=== PATIENT | male | born 1990 | race Caucasian/White ===

== ENCOUNTER 2023-04-22 04:56 | Emergency (ER) | payer SELFPAY ==
[2023-04-22 05:03] VITALS: BP 112/60; PULSE 81; RESP 16; TEMP 36.5; O2SAT 100
[2023-04-22 05:33] LABS: Appearance Urine Clear (Clear); Bilirubin Urine Negative (Negative); Blood Urine Negative (Negative); Color Urine Yellow (Yellow); Glucose Urine UA Negative (Negative); Ketones Urine Negative (Negative); Leukocyte Esterase Ur Negative LEU/UL (Negative); Nitrate Urine Negative (Negative); Protein Urine Negative (Negative); Specific Grav Ur 1.011 (1.001-1.035); Urobilinogen Urine 0.2 mg/dL (<2.0)
[2023-04-22 05:40] VITALS: BP 114/77; PULSE 62; RESP 15; O2SAT 97
[2023-04-22 05:45] LABS: Basophils Absolute Auto 0.1 K/mm3 (0.0-0.1); Eosinophils Absolute Auto 0.2 K/mm3 (0-0.3); Eosinophils Percent Auto 1.8 % (0-4.4); Hemoglobin 15.8 g/dL (14.0-18.0); Immature Granulocyte Absolute 0.03 K/mm3 (0.00-0.031); Immature Granulocyte Percent A 0.4 % (0-0.5); Lymphocytes Absolute Auto 3.41 K/mm3 (0.9-3.2); Lymphocytes Percent Auto 41.4 % (18.3-44.2); Mean Corpuscular HGB Conc 33.6 g/dl (32-36); Mean Corpuscular Hemoglobin 28.7 pg (26-34); Mean Corpuscular Volume 85.5 fl (80-100); Mean Platelet Volume 8.5 fl (7.4-10.4); Monocytes Absolute Auto 0.4 K/mm3 (0.1-0.6); Monocytes Percent Auto 4.9 % (2.6-8.5); Neutrophils Absolute Auto 4.2 K/mm3 (1.3-6.7); Neutrophils Percent Auto 50.5 % (45.5-73.1); Platelet Count Result 333 k/mm3 (150-375); Red Cell Distribution Width 12.6 % (11.5-14.5); White Blood Count 8.2 K/mm3 (4.5-10.0)
[2023-04-22 05:47] LABS: Add Urine Microscopic? NO
[2023-04-22 05:57] LABS: Alanine Aminotransferase 17 U/L (6-50); Albumin Level 4.3 g/dL (3.5-5.1); Alkaline Phosphatase 62 U/L (38-126); Anion Gap 5 mmol/L (8-16); Aspartate Amino Transferase 25 U/L (17-59); Blood Urea Nitrogen 14 mg/dL (9-20); Calcium 9.1 mg/dL (8.4-10.2); Carbon Dioxide 31 mmol/L (22-30); Chloride 101 mmol/L (98-107); Estimated CRCL calculation 104 ml/min; Estimated Glomerular Filt Rate > 60; Glucose 126 mg/dL (65-110); Lipase 48 U/L (23-300); Potassium 3.5 mmol/L (3.4-5.0); Sodium 137 mmol/L (137-145)
--- NOTE | 2023-04-22 06:02 | ED.GENADULT ---
HPI - General Adult General Chief complaint: Abdominal Pain Stated complaint: RUQ abd pain Time Seen by Provider: 04/22/23 05:21 History of Present Illness HPI narrative: This is a 32-year-old male presenting ED with chief complaint of right upper quadrant abdominal pain. Patient says that at 4:30 a.m. he was woken from sleep by a burning pain in the right upper quadrant. It was intense and he came to the emergency department immediately. While he was waiting to be evaluated the pain has now subsided. Patient has never had pain like this before, there are no exacerbating or alleviating symptoms. Patient had a normal bowel movement yesterday. Denies fever chills chest pain difficulty breathing current abdominal pain or urinary symptoms. Related Data Allergies Allergy/AdvReac Type Severity Reaction Status Date / Time Penicillins Allergy Unknown Verified 04/22/23 05:31 Exam Narrative: APPEARANCE: No apparent distress. Head: atraumatic. EYES: EOMI, NOSE: Atraumatic NECK: Trachea midline RESPIRATORY: No increased rate of breathing CARDIOVASCULAR: RRR, ABDOMINAL: Abdomen is soft nontender no guarding or rebound, point of care right upper quadrant ultrasound showed a gallstone with no evidence of cholecystitis. Sonographic Madrid's negative. MUSCULOSKELETAl: No obvious deformities NEURO: Alert. Moving 4/4 extremities SKIN:: Warm, dry. Normal color PSYCHIATRIC: Normal affect Course Vital Signs Vital signs: Vital Signs Temperature 97.7 F 04/22/23 05:03 Pulse Rate 81 04/22/23 05:03 Respiratory Rate 16 04/22/23 05:03 Blood Pressure 112/60 04/22/23 05:03 Pulse Oximetry 100 04/22/23 05:03 Oxygen Delivery Room Air 04/22/23 05:03 Temperature 97.7 F 04/22/23 05:03 Pulse Rate 62 04/22/23 05:40 Respiratory Rate 15 04/22/23 05:40 Blood Pressure 114/77 04/22/23 05:40 Pulse Oximetry 97 04/22/23 05:40 Oxygen Delivery Room Air 04/22/23 05:03 Medical Decision Making MDM Narrative Medical decision making narrative: -Course: 32-year-old male presenting with right upper quadrant pain that had resolved by time he got to the emergency department. VSS and well appearing. Laboratory study showed a mild elevation in bilirubin but no other findings. Point of care of right upper quadrant ultrasound showed a gallstone without evidence of cholecystitis. Sonographic Madrid's negative. Presumed biliary colic at this time. Patient will be discharged on trial of pain medication given primary care follow-up. Given return precautions. -DDX includes but is not limited to: PUD, gastritis, gallbladder disease, pneumonia , muscle strain, kidney stone -Social determinants of health: just moved here from [place], unemployed -Independent interpretation of studies:laboratory studies normal. Urine indicate infection. No blood in the urine. -Interventions: Tylenol, Toradol -Shared decision making / Disposition: discharge -RX Motrin Tylenol Vital Signs Vital Signs: Vital Signs Temperature 97.7 F 04/22/23 05:03 Pulse Rate 81 04/22/23 05:03 Respiratory Rate 16 04/22/23 05:03 Blood Pressure 112/60 04/22/23 05:03 Pulse Oximetry 100 04/22/23 05:03 Oxygen Delivery Room Air 04/22/23 05:03 Temperature 97.7 F 04/22/23 05:03 Pulse Rate 62 04/22/23 05:40 Respiratory Rate 15 04/22/23 05:40 Blood Pressure 114/77 04/22/23 05:40 Pulse Oximetry 97 04/22/23 05:40 Oxygen Delivery Room Air 04/22/23 05:03 Lab Data 04/22/23 05:39 04/22/23 05:39 Labs: Lab Results 04/22/23 04/22/23 Range/Units 05:16 05:39 WBC 8.2 (4.5-10.0) K/mm3 RBC 5.50 (4.6-6.20) M/mm3 Hgb 15.8 (14.0-18.0) g/dL Hct 47.0 (42.0-52.0) % MCV 85.5 (80-100) fl MCH 28.7 (26-34) pg MCHC 33.6 (32-36) g/dl RDW 12.6 (11.5-14.5) % Plt Count 333 (150-375) k/mm3 MPV 8.5 (7.4-10.4) fl Immature Gran % (Auto) 0.4 (0-0.5
[2023-04-22] MEDS: KETOROLAC 15 MG/ML VIAL (*BKC) IV PUSH (06:12)
[2023-04-22] MEDS: ACETAMINOPHEN 500 MG TABLET 1000 MG PO (06:12)
[2023-04-22 07:03] VITALS: BP 104/64; PULSE 16; RESP 15; O2SAT 100
== END 2023-04-22 07:04 | disposition home or self-care (01) ==
PROVIDERS: Emergency Provider Emergency Medicine
DX: K80.20 Calculus of gallbladder without cholecystitis without obstruction (principal)
CPT/HCPCS: 36415; 80053; 81003; 83690; 85025; 96374; 99284; A9270; J1885

== ENCOUNTER 2023-10-05 01:33 | Emergency (ER) | payer SELFPAY ==
--- NOTE | ~2023-10-05 | US_ITS ---
US abdomen limited INDICATION: Choledocholithiasis PROCEDURE: Realtime right upper abdominal ultrasound. COMPARISON: No prior studies for comparison. FINDINGS: The pancreas is normal without focal mass or pancreatic ductal dilation. Liver echotexture is increased, consistent with fatty infiltration. There is normal directional flow in the portal ve in. There are echogenic foci in the gallbladder which did not move, most likely gallbladder polyps. No de finitive stones are seen. Common bile duct measures 2 mm. No sonographic Madrid's sign. IMPRESSION: 1: Fatty infiltration of the liver. 2: Nonmobile echogenic intraluminal foci in the gallbladder, most likely gallbladder polyps rather th an stones. Reviewed, dictated and finalized at location B. IMPRESSION: 1: Fatty infiltration of the liver. 2: Nonmobile echogenic intraluminal foci in the gallbladder, most likely gallbl adder polyps rather than stones.
[2023-10-05 01:37] VITALS: BP 132/76; PULSE 87; RESP 16; TEMP 36.7; O2SAT 99
[2023-10-05 04:49] LABS: Appearance Urine Clear (Clear); Bilirubin Urine Negative (Negative); Blood Urine Negative (Negative); Color Urine Yellow (Yellow); Glucose Urine UA Negative (Negative); Ketones Urine Negative (Negative); Leukocyte Esterase Ur Negative LEU/UL (Negative); Nitrate Urine Negative (Negative); Protein Urine Negative (Negative); Specific Grav Ur 1.006 (1.001-1.035); pH Urine 6.5 (5.0-9.0)
[2023-10-05 04:50] LABS: Basophils Absolute Auto 0.1 K/mm3 (0.0-0.1); Basophils Percent Auto 0.6 % (0.2-1.2); Eosinophils Absolute Auto 0.1 K/mm3 (0-0.3); Eosinophils Percent Auto 0.6 % (0-4.4); Hematocrit 48.3 % (42.0-52.0); Hemoglobin 16.7 g/dL (14.0-18.0); Immature Granulocyte Absolute 0.03 K/mm3 (0.00-0.031); Immature Granulocyte Percent A 0.2 % (0-0.5); Lymphocytes Absolute Auto 2.13 K/mm3 (0.9-3.2); Lymphocytes Percent Auto 17.1 % (18.3-44.2); Mean Corpuscular HGB Conc 34.6 g/dl (32-36); Mean Corpuscular Hemoglobin 29.2 pg (26-34); Mean Corpuscular Volume 84.6 fl (80-100); Mean Platelet Volume 8.4 fl (7.4-10.4); Monocytes Absolute Auto 0.8 K/mm3 (0.1-0.6); Monocytes Percent Auto 6.5 % (2.6-8.5); Neutrophils Absolute Auto 9.3 K/mm3 (1.3-6.7); Platelet Count Result 342 k/mm3 (150-375); Red Blood Count 5.71 M/mm3 (4.6-6.20); Red Cell Distribution Width 12.1 % (11.5-14.5); White Blood Count 12.4 K/mm3 (4.5-10.0)
[2023-10-05 04:51] LABS: Add Urine Microscopic? NO
[2023-10-05 05:06] LABS: Alanine Aminotransferase 135 U/L (6-50); Albumin Level 4.9 g/dL (3.5-5.1); Alkaline Phosphatase 71 U/L (38-126); Anion Gap 11 mmol/L (4-12); Aspartate Amino Transferase 186 U/L (17-59); Bilirubin,Total 3.1 mg/dL (0.2-1.3); Blood Urea Nitrogen 12 mg/dL (9-20); Carbon Dioxide 31 mmol/L (22-30); Chloride 98 mmol/L (98-107); Estimated CRCL calculation 103 ml/min; Estimated Glomerular Filt Rate > 60; Glucose 104 mg/dL (65-110); Lipase 76 U/L (23-300); Potassium 3.6 mmol/L (3.4-5.0); Sodium 140 mmol/L (137-145)
--- NOTE | 2023-10-05 05:49 | ED.ABDPAIN ---
HPI - Abdominal Pain General Chief Complaint: Abdominal Pain Stated Complaint: abd pain Time Seen by Provider: 10/05/23 05:47 Source: patient Mode of arrival: ambulatory Limitations: no limitations History of Present Illness HPI narrative: Patient presents with epigastric pain radiating into his chest that essentially resolved after registration. He states the episode was associated with heavy breathing. 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 His last episode was a few years ago he states this felt different. He does not have a primary care physician in the area. He is seen which 2 hours prior to arrival. He describes the pain as dull. He states initially he was diaphoretic and pale and had 1 episode of vomiting. He previously been on omeprazole 20 mg but has not been taking because he has been asymptomatic for several years as well as not having primary care. Denies alcohol or NSAIDs. He states the episode was associated with heavy breathing. He tries to limit caffeine use primarily only tea as it is. Related Data Allergies Allergy/AdvReac Type Severity Reaction Status Date / Time Penicillins Allergy Unknown Verified 04/22/23 05:31 [facility] Past Medical History Medical History GERD (gastroesophageal reflux disease) Hiatal hernia Surgical History Surgical History History of esophagogastroduodenoscopy (EGD) [place] Social History Social History (Updated 10/08/23 @ 10:41 by Bonnie Wang MD) Occupation/Education: unemployed Additional occupation/education comments: previously worked at [employer] Exam Narrative: GENERAL: Well-appearing, well-nourished, and in no acute distress. HEAD: Normocephalic, atraumatic. EYES: Non injected, mildly icteric ENT: Nares clear, no rhinorrhea or epistaxis. NECK: Supple. CHEST: Speaking in full sentences. No respiratory distress. HEART: Regular rate and rhythm. . ABDOMEN: Soft, nondistended. Nontender to palpation including at the epigastrium and right upper quadrant. Madrid sign negative. EXTREMITIES: Normal range of motion. No edema. SKIN: Warm, dry, no rash. Appears jaundiced. NEURO: No focal deficits. Alert and oriented x3. PSYCH: Congruent mood and affect. Flat. Course Vital Signs Vital signs: Vital Signs Temperature 98.0 F 10/05/23 01:37 Pulse Rate 87 10/05/23 01:37 Respiratory Rate 16 10/05/23 01:37 Blood Pressure 132/76 10/05/23 01:37 Pulse Oximetry 99 10/05/23 01:37 Oxygen Delivery Room Air 10/05/23 01:37 Temperature 97.9 F 10/05/23 08:19 Pulse Rate 65 10/05/23 08:19 Respiratory Rate 16 10/05/23 08:19 Blood Pressure 112/77 10/05/23 08:19 Pulse Oximetry 97 10/05/23 08:19 Oxygen Delivery Room Air 10/05/23 01:37 MDM - Abdominal Pain MDM Narrative Medical decision making narrative: Patient presents with episode of epigastric abdominal pain radiating into his chest that then resolved. He states at 1st it was intense associated with heavy breathing and he was diaphoretic and pale and had an episode of vomiting now just dull. In the emergency department they are afebrile with vital signs within normal limits. Patient's workup is generally unremarkable except for his elevated bilirubin. There is concern for biliary etiology so will obtain right upper quadrant ultrasound. Otherwise, patient several other reasons for his pain as he has a history of GERD and hiatal hernia. DDX for indirect hyperbilirubinemia also known as unconjugated hyperbilirubinemia: Gilbert's syndrome, hemolysis, G6PD deficiency, thallasemias, hereditary spherocytosis, HUS, bilirubin metabolism dysregulation, GI obstructions. Patient expresses frustration that he is unable to afford this emergenc
[2023-10-05 06:51] VITALS: BP 120/72; PULSE 71; RESP 15; O2SAT 100
[2023-10-05 06:56] LABS: Bilirubin Indirect 2.5 mg/dL (0-1.1)
[2023-10-05] MEDS: PANTOPRAZOLE 40 MG TABLET PO (08:16)
[2023-10-05 08:19] VITALS: BP 112/77; PULSE 65; RESP 16; TEMP 36.6; O2SAT 97
--- NOTE | 2023-10-05 08:19 | PC.NURSE ---
Assessment unchanged. Dr. Wang spoke with pt in detail of findings. Pt appears frustrated with diagnosis.
== END 2023-10-05 08:21 | disposition home or self-care (01) ==
PROVIDERS: Emergency Provider Student in an Organized Health Care Education/Training Program
DX: R74.01 Elevation of levels of liver transaminase levels (principal); E80.6 Other disorders of bilirubin metabolism; K76.0 Fatty (change of) liver, not elsewhere classified; K82.4 Cholesterolosis of gallbladder; K44.9 Diaphragmatic hernia without obstruction or gangrene; K21.9 Gastro-esophageal reflux disease without esophagitis
CPT/HCPCS: 36415; 76705; 80053; 81003; 82248; 83690; 85025; 99284; A9270

== ENCOUNTER 2023-10-17 04:04 | Emergency (ER) | payer SELFPAY ==
[2023-10-17 04:18] VITALS: BP 127/81; PULSE 73; RESP 15; TEMP 35.8; O2SAT 100
--- NOTE | 2023-10-17 04:28 | ECG_ITS ---
Test Date: 2023-10-17 04:35:09 Measurements Intervals [place] Rate: 63 P: 60 MI: 196 QRS: 66 QRSD: 113 T: 63 QT: 394 QTc: 405 Interpretive Statements SINUS RHYTHM POSSIBLE RIGHT VENTRICULAR CONDUCTION DELAY [RSR (QR) IN V1/V2] OTHERWISE NORMAL ECG No previous ECG available for comparison Electronically Signed On 10-17-2023 07:25:53 CDT by Franck Buckley M.D.
[2023-10-17 04:33] LABS: Basophils Absolute Auto 0.1 K/mm3 (0.0-0.1); Basophils Percent Auto 0.7 % (0.2-1.2); Eosinophils Absolute Auto 0.1 K/mm3 (0-0.3); Eosinophils Percent Auto 1.2 % (0-4.4); Hematocrit 46.8 % (42.0-52.0); Hemoglobin 16.8 g/dL (14.0-18.0); Immature Granulocyte Absolute 0.01 K/mm3 (0.00-0.031); Immature Granulocyte Percent A 0.1 % (0-0.5); Lymphocytes Absolute Auto 2.74 K/mm3 (0.9-3.2); Mean Corpuscular HGB Conc 35.9 g/dl (32-36); Mean Corpuscular Hemoglobin 30.2 pg (26-34); Mean Platelet Volume 8.4 fl (7.4-10.4); Monocytes Absolute Auto 0.4 K/mm3 (0.1-0.6); Monocytes Percent Auto 5.3 % (2.6-8.5); Neutrophils Absolute Auto 4.1 K/mm3 (1.3-6.7); Neutrophils Percent Auto 55.7 % (45.5-73.1); Platelet Count Result 351 k/mm3 (150-375); Red Blood Count 5.57 M/mm3 (4.6-6.20); White Blood Count 7.4 K/mm3 (4.5-10.0)
[2023-10-17 04:43] LABS: Alanine Aminotransferase 81 U/L (6-50); Albumin Level 4.8 g/dL (3.5-5.1); Alkaline Phosphatase 65 U/L (38-126); Anion Gap 11 mmol/L (4-12); Aspartate Amino Transferase 128 U/L (17-59); Bilirubin,Total 2.7 mg/dL (0.2-1.3); Blood Urea Nitrogen 15 mg/dL (9-20); Calcium 9.3 mg/dL (8.4-10.2); Carbon Dioxide 32 mmol/L (22-30); Chloride 96 mmol/L (98-107); Estimated CRCL calculation 92 ml/min; Estimated Glomerular Filt Rate > 60; Glucose 111 mg/dL (65-110); Lipase 57 U/L (23-300); Potassium 3.8 mmol/L (3.4-5.0); Sodium 139 mmol/L (137-145)
--- NOTE | 2023-10-17 04:55 | ED.ABDPAIN ---
HPI - Abdominal Pain General Chief Complaint: Abdominal Pain Stated Complaint: abdominal pain Time Seen by Provider: 10/17/23 04:18 History of Present Illness HPI narrative: Patient 33-year-old gentleman who presents emergency department chief complaint of epigastric pain. Patient reports the pain started this evening was in the upper abdomen radiating up into the chest the patient reports that was diagnosed with gallbladder polyps displaced see GI. The patient reports he started to feel better now Related Data Allergies Allergy/AdvReac Type Severity Reaction Status Date / Time Penicillins Allergy Unknown Verified 04/22/23 05:31 Review of Systems Review of Systems: A 10 system review of systems was completed on the patient and is negative except for what is stated in the HPI. Nursing and ancillary documentation was reviewed. [facility] Past Medical History Medical History GERD (gastroesophageal reflux disease) Hiatal hernia Surgical History Surgical History History of esophagogastroduodenoscopy (EGD) [place] Social History Social History Occupation/Education: unemployed Additional occupation/education comments: previously worked at [employer] Exam Narrative: GENERAL: Well-appearing, well-nourished, and in no acute distress. HEAD: Normocephalic, atraumatic. EYES: PERRLA and EOMI. ENT: Nares clear, no rhinorrhea or epistaxis. Mucous membranes moist. NECK: Supple. CHEST: Clear to auscultation. No respiratory distress. HEART: Regular rate and rhythm. No murmur heard. Normal peripheral pulses. ABDOMEN: Soft, nontender, nondistended, normal active bowel sounds. EXTREMITIES: Normal range of motion. No edema. SKIN: Warm, dry, no rash. NEURO: No focal deficits. Alert and oriented x3. PSYCH: Normal mood and affect. Course Vital Signs Vital signs: Vital Signs Temperature 35.8 C L 10/17/23 04:18 Pulse Rate 73 10/17/23 04:18 Respiratory Rate 15 10/17/23 04:18 Blood Pressure 127/81 10/17/23 04:18 Pulse Oximetry 100 10/17/23 04:18 Oxygen Delivery Room Air 10/17/23 04:18 Temperature 35.8 C L 10/17/23 04:18 Pulse Rate 73 10/17/23 04:18 Respiratory Rate 15 10/17/23 04:18 Blood Pressure 127/81 10/17/23 04:18 Pulse Oximetry 100 10/17/23 04:18 Oxygen Delivery Room Air 10/17/23 04:18 MDM - Abdominal Pain MDM Narrative Medical decision making narrative: Differential diagnosis includes intra-abdominal infection, diverticulitis, colitis, biliary colic Laboratory studies were obtained on the patient which did show bilirubin 2.7 AST 128 ALT of 81 these are actually lower than the patient's previous visit. Imaging was reviewed on the patient where he had a gallbladder ultrasound that showed multiple polyps. The patient is to see GI as an outpatient. Lab Data 10/17/23 04:29 10/17/23 04:29 Labs: Lab Results 10/17/23 Range/Units 04:29 WBC 7.4 (4.5-10.0) K/mm3 RBC 5.57 (4.6-6.20) M/mm3 Hgb 16.8 (14.0-18.0) g/dL Hct 46.8 (42.0-52.0) % MCV 84.0 (80-100) fl MCH 30.2 (26-34) pg MCHC 35.9 (32-36) g/dl RDW 12.0 (11.5-14.5) % Plt Count 351 (150-375) k/mm3 MPV 8.4 (7.4-10.4) fl Immature Gran % (Auto) 0.1 (0-0.5) % Neut % (Auto) 55.7 (45.5-73.1) % Lymph % (Auto) 37.0 (18.3-44.2) % [place] % (Auto) 5.3 (2.6-8.5) % Eos % (Auto) 1.2 (0-4.4) % Baso % (Auto) 0.7 (0.2-1.2) % Lymph # (Auto) 2.74 (0.9-3.2) K/mm3 [place] # (Auto) 0.4 (0.1-0.6) K/mm3 Eos # (Auto) 0.1 (0-0.3) K/mm3 Baso # (Auto) 0.1 (0.0-0.1) K/mm3 Abs Immat Gran (auto) 0.01 (0.00-0.031) K/mm3 Absolute Neuts (auto) 4.1 (1.3-6.7) K/mm3 Absolute Nucleated RBC 0.000 (0.0-0.012) K/mm3 Nucleated RBC % 0.0 (0.0-0.2) % S
[2023-10-17 05:24] VITALS: BP 118/73; PULSE 73; RESP 14; TEMP 36.1; O2SAT 100
== END 2023-10-17 05:26 | disposition home or self-care (01) ==
PROVIDERS: Emergency Provider Emergency Medicine
DX: K80.50 Calculus of bile duct without cholangitis or cholecystitis without obstruction (principal); K21.9 Gastro-esophageal reflux disease without esophagitis; K44.9 Diaphragmatic hernia without obstruction or gangrene; R94.31 Abnormal electrocardiogram [ECG] [EKG]
CPT/HCPCS: 36415; 80053; 83690; 85025; 93005; 99283

== ENCOUNTER 2023-11-03 09:08 | Emergency (ER) | payer SELFPAY ==
--- NOTE | ~2023-11-03 | CT_ITS ---
EXAMINATION: CT abdomen pelvis w con DATE: 11/03/2023 12:21 INDICATION: Recurrent right upper quadrant abdominal pain. TECHNIQUE: Computed tomography (CT) of the abdomen and pelvis was performed with 100 mL Omnipaque 350 intravenous contrast. Automated exposure control and iterative reconstruction technique were employe d. The dose-length product was 329.40 mGy-cm. COMPARISON: None. FINDINGS: The visualized portions of lung bases demonstrate mild atelectasis. There is a 6 mm nodule in right lower lobe, likely benign. No pleural effusion. The heart size is normal. No pericardial eff usion. The liver is normal. The gallbladder is normal in size and contains gallstones. Gallbladder wa ll thickening is noted. The spleen, pancreas, adrenal glands, and right kidney are normal. There is a 9 mm cyst in left kidney. The bladder is distended. There are no dilated loops of bowel. The appendi x is not visualized. There are no pathologically enlarged lymph nodes. There is no free intraperitone al fluid. The bones are unremarkable. IMPRESSION: 1. Cholelithiasis., Gallbladder wall thickening may be secondary to acute or chronic cholecystitis. Reviewed, dictated and finalized at location A. IMPRESSION: 1. Cholelithiasis., Gallbladder wall thickening may be secondary to acute or ch ronic cholecystitis.
--- NOTE | 2023-11-03 09:12 | ECG_ITS ---
Test Date: 2023-11-03 09:15:39 Measurements Intervals [place] Rate: 66 P: 78 TN: 189 QRS: 82 QRSD: 123 T: 81 QT: 381 QTc: 401 Interpretive Statements SINUS RHYTHM WITH SINUS ARRHYTHMIA MINOR RV CONDUCTION DELAY OTHERWISE NORMAL ECG Compared to ECG 10/17/2023 04:35:09 NO DIFFERENCE Electronically Signed On 11-05-2023 07:02:42 CDT by Franck Buckley M.D.
[2023-11-03 09:19] VITALS: BP 110/68; PULSE 70; RESP 20; TEMP 36.4; O2SAT 100
[2023-11-03 09:33] LABS: Basophils Absolute Auto 0.1 K/mm3 (0.0-0.1); Basophils Percent Auto 0.6 % (0.2-1.2); Eosinophils Absolute Auto 0.1 K/mm3 (0-0.3); Eosinophils Percent Auto 0.7 % (0-4.4); Hemoglobin 15.8 g/dL (14.0-18.0); Immature Granulocyte Absolute 0.05 K/mm3 (0.00-0.031); Immature Granulocyte Percent A 0.5 % (0-0.5); Lymphocytes Absolute Auto 2.14 K/mm3 (0.9-3.2); Lymphocytes Percent Auto 20.7 % (18.3-44.2); Mean Corpuscular HGB Conc 34.3 g/dl (32-36); Mean Corpuscular Hemoglobin 29.3 pg (26-34); Mean Corpuscular Volume 85.3 fl (80-100); Mean Platelet Volume 8.5 fl (7.4-10.4); Monocytes Absolute Auto 0.8 K/mm3 (0.1-0.6); Monocytes Percent Auto 7.5 % (2.6-8.5); Neutrophils Absolute Auto 7.2 K/mm3 (1.3-6.7); Platelet Count Result 313 k/mm3 (150-375); Red Blood Count 5.39 M/mm3 (4.6-6.20); Red Cell Distribution Width 12.3 % (11.5-14.5); White Blood Count 10.3 K/mm3 (4.5-10.0)
[2023-11-03 09:44] LABS: Alanine Aminotransferase 238 U/L (6-50); Albumin Level 4.8 g/dL (3.5-5.1); Alkaline Phosphatase 79 U/L (38-126); Anion Gap 10 mmol/L (4-12); Aspartate Amino Transferase 348 U/L (17-59); Bilirubin,Total 2.8 mg/dL (0.2-1.3); Blood Urea Nitrogen 11 mg/dL (9-20); Calcium 9.2 mg/dL (8.4-10.2); Carbon Dioxide 32 mmol/L (22-30); Chloride 97 mmol/L (98-107); Estimated CRCL calculation 117 ml/min; Estimated Glomerular Filt Rate > 60; Glucose 145 mg/dL (65-110); Lipase 73 U/L (23-300); Potassium 3.8 mmol/L (3.4-5.0); Sodium 139 mmol/L (137-145)
--- NOTE | 2023-11-03 10:58 | ED.ABDPAIN ---
HPI - Abdominal Pain General Chief Complaint: Abdominal Pain Stated Complaint: abd pain, chest pain Time Seen by Provider: 11/03/23 10:30 History of Present Illness [facility] narrative: This is a 33-year-old male with a past medical history significant for cholelithiasis and previous gallbladder attacks. Today patient presents to the emergency room with right upper quadrant abdominal pain he states feels very similar to his previous gallbladder attack. He states the last time this happened was in September. He states that he is supposed to follow-up with the order make up clerk and the surgeon but his insurance is not kick in yet so he has not sought this follow-up appointment. Patient states he woke up today with some abdominal pain that comes and goes in waves. Patient denies any nauseousness, vomiting, headache, vision change, fever, chills, chest pain, shortness a medical back pain. He is able to ambulate unassisted. Has not take anything for pain at home. Related Data Allergies Allergy/AdvReac Type Severity Reaction Status Date / Time Penicillins Allergy Unknown Verified 11/03/23 09:11 Review of Systems Review of Systems: As reviewed above in the [facility] Past Medical History Medical History GERD (gastroesophageal reflux disease) Hiatal hernia Surgical History Surgical History History of esophagogastroduodenoscopy (EGD) [place] Social History Social History Occupation/Education: unemployed Additional occupation/education comments: previously worked at [employer] Exam Narrative: GENERAL: [Well-appearing, well-nourished, and in no acute distress.] Nontoxic appearing HEAD: [Normocephalic, atraumatic.] EYES: [PERRLA and EOMI.] ENT: Nares clear, no rhinorrhea or epistaxis. Mucous membranes moist. NECK: Supple. CHEST: [Clear to auscultation. No respiratory distress.] HEART: [Regular rate and rhythm]. No murmur heard. [Normal peripheral pulses.] ABDOMEN: [Soft, nondistended], minimally tender in the right upper quadrant, no rebound, guarding, no peritonitis EXTREMITIES: Normal range of motion. [No edema.] SKIN: Warm, dry, no rash. NEURO: [No focal deficits]. Alert and oriented [x3.] PSYCH: [Normal mood and affect.] Course Vital Signs Vital signs: Vital Signs Temperature 36.4 C 11/03/23 09:19 Pulse Rate 70 11/03/23 09:19 Respiratory Rate 20 11/03/23 09:19 Blood Pressure 110/68 11/03/23 09:19 Pulse Oximetry 100 11/03/23 09:19 Oxygen Delivery Room Air 11/03/23 09:19 Temperature 36.4 C 11/03/23 09:19 Pulse Rate 63 11/03/23 11:24 Respiratory Rate 18 11/03/23 11:24 Blood Pressure 119/73 11/03/23 11:24 Pulse Oximetry 100 11/03/23 11:24 Oxygen Delivery Room Air 11/03/23 09:19 MDM - Abdominal Pain MDM Narrative Medical decision making narrative: This is a 33-year-old male with a history of cholelithiasis and previous gallbladder attacks who presents to the emergency department with right upper quadrant abdominal pain. Differential diagnosis includes cholelithiasis, cholecystitis, choledocholithiasis. Low suspicion other intra-abdominal process such as pancreatitis or appendicitis. He is nontoxic appearing otherwise well-appearing, awake alert oriented. He has normal reassuring vital signs of any fever, hypoxic tachycardia her blood pressure concerns. His abdominal examination is very reassuring Ernesto minimal tenderness noted quadrant. CBC, CMP, lipase, urinalysis, chest x-ray and EKG were obtained CT abdomen pelvis was obtained and he was treated with morphine, Zofran and a L of fluid. Patient's laboratory studies revealed a white count of 10.3 without any significant leukocytosis. No anemia. Normal platelets. Electrolytes largely within normal limits on review o
[2023-11-03 11:03] LABS: Add Urine Microscopic? NO; Appearance Urine Clear (Clear); Bilirubin Urine Negative (Negative); Blood Urine Negative (Negative); Color Urine Yellow (Yellow); Glucose Urine UA Negative (Negative); Ketones Urine Negative (Negative); Leukocyte Esterase Ur Negative LEU/UL (Negative); Nitrate Urine Negative (Negative); Protein Urine Negative (Negative); pH Urine 6.5 (5.0-9.0)
[2023-11-03 11:24] VITALS: BP 119/73; PULSE 63; RESP 18; O2SAT 100
[2023-11-03] MEDS: MORPHINE SULFATE (*CRX) 4 MG/ML INJ 6 MG IV PUSH (11:31)
[2023-11-03] MEDS: ONDANSETRON INJ 4 MG/2 ML VIAL IV PUSH (11:31)
[2023-11-03] MEDS: LACTATED RINGERS 1,000 ML 999 ML IV CONT (11:32)
--- NOTE | 2023-11-03 12:00 | ECG_ITS ---
Test Date: 2023-11-03 12:00:09 Measurements Intervals [place] Rate: 50 P: 59 [place]: 184 QRS: 77 QRSD: 110 T: 69 QT: 424 QTc: 388 Interpretive Statements SINUS BRADYCARDIA OTHERWISE NORMAL ECG Compared to ECG 11/03/2023 09:15:39 NO DIFFERENCE Electronically Signed On 11-05-2023 07:08:21 CDT by Franck Buckley M.D.
[2023-11-03 13:54] VITALS: TEMP 37.1
== END 2023-11-03 13:55 | disposition home or self-care (01) ==
PROVIDERS: Emergency Medicine; Emergency Provider Student in an Organized Health Care Education/Training Program
DX: K80.10 Calculus of gallbladder with chronic cholecystitis without obstruction (principal); R74.01 Elevation of levels of liver transaminase levels; K21.9 Gastro-esophageal reflux disease without esophagitis; K44.9 Diaphragmatic hernia without obstruction or gangrene; R00.1 Bradycardia, unspecified
CPT/HCPCS: 36415; 74177; 80053; 81003; 83690; 85025; 93005; 96361; 96374; 96375; 99284; J2270; J2405; J7120; Q9967

== ENCOUNTER 2024-01-31 08:05 | Outpatient (CLI) | payer OTHER, SELFPAY ==
[2024-01-31 08:41] LABS: Alanine Aminotransferase 23 U/L (6-50); Albumin Level 4.7 g/dL (3.5-5.1); Alkaline Phosphatase 57 U/L (38-126); Amylase 88 U/L (30-110); Aspartate Amino Transferase 27 U/L (17-59); Bilirubin,Total 2.3 mg/dL (0.2-1.3); Lipase 38 U/L (23-300)
== END 2024-01-31 08:06 | disposition home or self-care (01) ==
LOC: ANHSURGERY 08:09
PROVIDERS: Visit Provider Surgery
DX: K80.20 Calculus of gallbladder without cholecystitis without obstruction (principal)
CPT/HCPCS: 36415; 80076; 82150; 83690

== ENCOUNTER 2024-02-10 00:11 | Day surgery (SDC) | payer OTHER, SELFPAY ==
[2024-01-30 14:50] VITALS: BMI 25.2
--- NOTE | 2024-01-30 14:56 | PC.NURSE ---
Report to the Outpatient Waiting Room, entrance under the green pavilion located off [facility], at time _0830_ on date _[id number]_. Planned Procedure Time: _1030_.? Time changes happen often and if your time is changed the preop area will call you the afternoon before. - You and your visitor will be asked to self-screen and do not enter if you have any COVID symptoms. Please call surgeon if you need to reschedule. - A mask is optional within the hospital at this time. Patients may have clear liquids (water, carbonated beverages, clear teas, apple juice) until 3 hours prior to surgery with a maximum of 20 ounces. - No food from midnight until time of surgery and no smoking. This includes no chewing gum, candy or mints. Take only the following medications with a SIP of water on the morning of surgery: ____None__ DO NOT STOP ANY OF YOUR OTHER PRESCRIPTION MEDICATIONS PRIOR TO SURGERY EXCEPT THE FOLLOWING Medications to discontinue per physician ____None Please no make-up, nail croatian, hairspray, perfume, deodorant, or body powder the day of surgery.? No jewelry (including any body piercings) or valuables the day of surgery, leave them at home.? Please take a shower or bath the night before, or the morning of, surgery with an antibacterial soap.? Wear comfortable, loose fitting clothing.? . - Jewelry must be removed prior to entering the operating room.? Rings and piercings that are not removed may be cut off. - The hospital will not accept responsibility for valuables.? - Please leave all valuables, including medications, at home the day of surgery. If you are going home after surgery, a licensed line haul driver must drive you home.? - NO public transportation without another adult if you receive anesthesia. - We recommend that an adult stay with you for 24 hours following discharge. - We also recommend that you do not drive, make important decision, drink alcoholic beverages, or take any drugs that were not prescribed by your health care provider for at least 24 hours after your discharge time. Follow any additional instructions given to you from your surgeon. Telephone instructions given to __Eddie__and asked if any additional questions and then verbalized understanding. Patient advised to call surgeon office or pre surgery nurse liaison [phone] if any additional questions.
[2024-02-10] VITALS (11 sets, daily range): BP systolic 106–120; BP diastolic 63–77; PULSE 60–82; RESP 12–20; TEMP 36.3–37.1; O2SAT 99–100
--- NOTE | ~2024-02-10 | XR_ITS ---
EXAMINATION: XR cholangiogram surg 1st inj DATE: 02/10/2024 13:34 INDICATION: Cholelithiasis. TECHNIQUE: 66 fluoroscopic images of the right upper quadrant were obtained during intraoperative cho langiography performed by the surgeon. I was not present in the operating room. Fluoroscopy exposure time was 28 seconds. COMPARISON: CT abdomen and pelvis 11/03/2023 FINDINGS: The catheter is in the cystic duct. The common duct and intrahepatic biliary ducts are norm al in caliber. There is a filling defect of the distal common bile duct. Only trace contrast progress es to the duodenum. IMPRESSION: 1. Filling defect of the distal common bile duct, consistent with stone versus stricture. Reviewed, dictated and finalized at location A. RATORY DEVELOPMENT TECHNICIAN
[2024-02-10] MEDS: ACETAMINOPHEN 500 MG TABLET 1000 MG PO (10:30)
[2024-02-10] MEDS: LACTATED RINGERS 1,000 ML 30 ML IV CONT ×3 (10:35→15:00)
[2024-02-10] MEDS: KETOROLAC 15 MG/ML VIAL (*BKC) IV PUSH (10:38)
--- NOTE | 2024-02-10 12:17 | P.HP_ITS ---
H&P: HPI History of Present Illness Date/Time: 02/10/24 12:17 Chief Complaint: Symptomatic cholelithiasis Narrative: Eddie is a 33 y/o male who presents to the office today after being seen at [facility] on 11/03/23. Patient presented to [facility] with RUQ pain. Patient reports he first started having this pain in April this year. He reports occasional sweating and nausea along with RUQ pain. He states soda and red meat tend to make the symptoms worse. He denies any bloating or diarrhea. US done on 10/05/23 showed Fatty infiltration of the liver and Nonmobile echogenic intraluminal foci in the gallbladder, most likely gallbladder polyps rather than stones. CT scan done on 11/03/23 showed Cholelithiasis., Gallbladder wall thickening may be secondary to acute or chronic cholecystitis. Patient bilirubin noted to be high. Review of Systems Review of Systems: The remainder of the review of systems to include constitutional, HEENT, cardiovascular, respiratory, GI, , integumentary, musculoskeletal, endocrine, immunologic, hematologic, psychiatric, and neurologic are all negative except for which is mentioned above in the HPI. [facility] Past Medical History Medical History Anxiety GERD (gastroesophageal reflux disease) Hiatal hernia Surgical History Surgical History History of esophagogastroduodenoscopy (EGD) [place] Social History Social History Smoking status: Never smoker Alcohol intake: current Do You Feel Safe in your Home?: Yes Lack of Transportation: No Lack of Food: Often True Current Housing: I Have Housing Concerned About Future Housing: YES Difficulty Paying Gas/Electric Bills: No Difficulty Paying for Meds: YES Currently Unemployed: No Education: Associate Degree Difficulty w/ Childcare or Family Care: No Living arrangements: with family Occupation/Education: unemployed Additional occupation/education comments: previously worked at [employer] Meds Home Medications and Allergies Home Medications Medication Instructions Recorded Confirmed Type No Home Medications 11/13/23 02/10/24 History Allergies Allergy/AdvReac Type Severity Reaction Status Date / Time Penicillins Allergy Unknown Verified 02/10/24 10:47 Vital Signs Vital Signs - 24 hr 02/10/24 10:48 Temperature 37.1 C Pulse Rate 70 Respiratory Rate 18 Blood Pressure 118/74 Pulse Oximetry 100 Oxygen Delivery Room Air Exam Const: General: comfortable and no acute distress HENMT: Ears: TM's normal bilaterally Face/Nose/Sinus: Normal nares present Mouth: Yes moist mucous membranes Eyes: General: appearance normal, both eyes and all related structures Sclera: sclerae normal (No scleral icterus) Pupils: Equal, round and reactive pupils present EOM: EOMs intact bilaterally Neck: Neck: supple and no JVD Resp: Effort & Inspection: normal respiratory effort Auscultation: clear to auscultation bilaterally Cardio: Rate: regular rate Rhythm: regular rhythm GI: GI Palp: Yes Soft to palpation, No Firmness to palpation present (GI), No Tenderness to palpation present (GI), No Guarding due to palpation present (GI) and No Hernia present Skin: General skin exam: normal color and no rashes or lesions noted Neuro: General: gait normal Speech: normal speech Motor exam (neuro): 5/5 motor strength present throughout Sensory Exam: normal sensation Psych: Mental Status: mental status grossly normal Affect: normal affect Assessment and Plan Assessment and plan (1) Gallstones: Code(s): K80.20 - Calculus of gallbladder without cholecystitis without obstruction Status: Acute Assessment and Plan: I have reviewed chart prior to patient visit. Patient is likely having symptoms from gallbladder. He may have small gallstones vs gallbladder polyps. Pain is in right upper quadrant and sounds like biliary colic. His total bilirubin is 2.8, but this is chronic so this may be Gilbert's disease. I have recommended a laparoscopic cholecystectomy, possible open, with IOC to be done under general anesthesia as an outpatient. We discussed the procedure in detail as well as risks of conversion to open, bleeding, infection & bile leak. Gallbladder information sheet and low fat diet information was given to the patient. Discussed the typical postoperative recovery. Risks, benefits, indications, and expected outcomes were discussed with the patient and/or family members. Specific risks to include bleeding and possible need for blood transfusion, infection, bile leak, injury to other organs, common bile duct injury, and conversion to open cholecystectomy has been discussed. I have answered all their questions and they agreed to proceed with surgery as outlined above.
--- NOTE | 2024-02-10 12:20 | WPDHPUPDATE1 ---
History and Physical Update Update Date/Time: 02/10/24 12:20 History and Physical has been reviewed, including an updated exam of the patient. There are NO changes in the patient's condition. Risks, benefits, and alternatives have been discussed and questions answered. Patient agrees to proceed with procedure.
--- NOTE | 2024-02-10 12:24 | P.PNAN_ITS ---
Anes - Initial Pre Proc Eval Procedure: Operation Date: 02/10/24 12:00 Proposed Procedures p Laparoscopic Cholecystectomy with Intraoperative Cholangiogram, Possible Open - Kwan Infante MD Date/Time: 02/10/24 12:24 Surgeon: Kwan Infante MD Pre Op Diagnosis: billiary colic Patient Data Age: 33 Gender: M Height: 1.68 m Weight: 70.75 kg Last Vital Signs Temp 98.7 F 02/10/24 10:48 Pulse 70 02/10/24 10:48 Resp 18 02/10/24 10:48 BP 118/74 02/10/24 10:48 Pulse Ox 100 02/10/24 10:48 O2 Del Method Room Air 02/10/24 10:48 Allergies Allergy/AdvReac Type Severity Reaction Status Date / Time Penicillins Allergy Unknown Verified 02/10/24 10:47 Home Medications Medication Instructions Recorded Confirmed Type No Home Medications 11/13/23 02/10/24 History Patient hx anesthesia problems: none Family hx anesthesia problems: none Results Review: All pre-operative results and documents have been reviewed as part of the pre- operative evaluation. [facility] Past Medical History Medical History Anxiety Asthma Bipolar 1 disorder Eczema Gallstones GERD (gastroesophageal reflux disease) Hiatal hernia Surgical History Surgical History History of esophagogastroduodenoscopy (EGD) [place] Social History Social History Smoking status: Never smoker Alcohol intake: current Do You Feel Safe in your Home?: Yes Lack of Transportation: No Lack of Food: Often True Current Housing: I Have Housing Concerned About Future Housing: YES Difficulty Paying Gas/Electric Bills: No Difficulty Paying for Meds: YES Currently Unemployed: No Education: Associate Degree Difficulty w/ Childcare or Family Care: No Living arrangements: with family Occupation/Education: unemployed Additional occupation/education comments: previously worked at [employer] Anes - Eval Final PreProcedure Day of Procedure 02/10/24 12:24 Patient weight: overweight Lungs: clear to auscultation Airway: Mallampati scale class 1 Neurological: alert and oriented Last oral intake: >/= 8 hours ASA classification: III Emergent: no Anesthetic plan: proceed Anesthesia type and monitoring: general ETT and standard monitoring Results Review: All pre-operative results and documents have been reviewed as part of the pre- operative evaluation. Informed Consent: The patient's anesthetic plan and its attendant risks and benefits were discussed with the patient/family/POA. Questions were solicited and answers provided to the satisfaction of the patient/family/POA.
[2024-02-10] MEDS: ceFAZolin 2 GM/D5W 50 ML 2 GM/50 ML BAG IVPB (12:37)
[2024-02-10] MEDS: LIDO 1%/EPINEPHRINE 1:100,000 20 ML VIAL 40 ML INFILTRATE (13:07)
--- NOTE | 2024-02-10 13:47 | PM.OP ---
Procedure Note - Brief Procedure Note - Brief Date of procedure: 02/10/24 Symptomatic cholelithiasis, elevated total bilirubin. Post-op diagnosis: Other (Chronic cholecystitis secondary to cholelithiasis. Distal CBD narrowing, stone vs stricture) Procedure performed: Laparoscopic cholecystectomy with intraoperative cholangiogram Surgeon: Kwan Infante MD Anesthesia: GETA Implants: None Drains: No Packing: No Pathology: Yes (Gallbladder and gallstones sent to pathology) Complications: No immediate complications Condition: Stable Disposition: PACU
--- NOTE | 2024-02-10 13:59 | P.OP_ITS ---
Procedure Note - Detailed Date of Procedure 02/10/24 Pre-op Diagnosis Symptomatic cholelithiasis. Post-op Diagnosis Other (Chronic cholecystitis secondary to cholelithiasi. Distal CBD stone vs stricture) Procedure Performed Laparoscopic cholecystectomy with intraoperative cholangiogram Surgeon Kwan Infante MD Turnaround Planner Martha Cedeno [facility] Anesthesia General Indications Patient is a 33-year-old male who was having issues with her epigastric right upper quadrant abdominal pain. Pain is made worse with eating. Imaging showed cholelithiasis. Total bilirubin was mildly elevated at 2 to 2.5 but there was never any suggestion of common bile duct dilatation or common bile duct stone on his imaging studies. He presents now for elective laparoscopic cholecystectomy with intraoperative cholangiogram. Findings The gallbladder had gallstones in it. The gallbladder wall was mildly thickened. Intraoperative cholangiogram revealed distal common bile duct partial obstruction to either stone or stricture. There was small amount of contrast which got past the area to the duodenum. There was no real significant common bile duct or intrahepatic duct dilatation. Description of Procedure After informed consent was obtained patient brought to the operating room was placed supine position and general endotracheal anesthesia was administered. The abdomen was then prepped draped usual sterile fashion. Time-out was then performed and he was given perioperative IV antibiotics. I entered the abdomen left upper quadrant utilizing a 5mm Optiview port. Once inside the abdomen insu fflated to adequate pneumoperitoneum of 15mmHg of CO2. I then placed a 5mm periumbilical trocar port and then a 10mm epigastric trocar port as well as 2 more 5mm right subcostal trocar ports all under direct visualization. The laparoscopic switched to the periumbilical trocar port and then the gallbladder was seen and was dilated and had some very mild gallbladder wall thickening. The gallbladder was held at the dome with a laparoscopic grasper and elevated over the right half the the liver towards right shoulder very a 2nd grasper used to hold the gallbladder at the infundibulum. I then stripped down the visceral peritoneum off of the infundibular gallbladder to identify the cystic duct. Cystic duct was then dissected out circumferentially. The cystic artery was identified and dissected out in a very similar fashion. The posterior wall the gallbladder at the infundibulum dissected free of the liver into the critical view was obtained. At this point I then used the Brown clamp to perform a cholangiogram. It was introduced into the abdomen and the infundibular gallbladder was clamped with a Brown clamp. A cholangiocatheter was advanced through the specialized channel the Brown clamp and then the infundibulum of the gallbladder was pierced with the catheter tip. I then flushed with saline solution and flushed easily. Intraoperative cholangiogram was then performed with the C-arm. Proximally 40cc total of half-strength and full-strength Visipaque contrast dye was injected. The contrast showed a narrowing or partial obstruction of the distal common bile duct. Very small amount of contrast emptied into the duodenum. There was however no dilation of common bile duct and no dilation of the intrahepatic bile ducts. This was confirmed by the radiologist who read the images. I then removed the catheter from the infundibular gallbladder flushed with saline solution. Then placed 2 clips proximally cystic duct and 2 clips distally high on the infundibulum of the gallbladder. I then divided the cystic duct with Endo Sangeeta. A similar fashion cystic artery was then clipped and divided as well. When I did divide the cystic duct there was a stone in the cystic duct. The gallbladder was then resected off the liver utilized electrocautery. Once it was free from the liver is placed into Endo-Catch bag and brought out the epigastric port site. Gallbladder had multiple gallstones within it. It was sent to pathology for examination. I then irrigated out the right upper quadrant abdomen gallbladder fossa with sterile saline solution. Hemostasis was excellent. There was no evidence of bile leak. Then aspirated the fluid from the right upper quadrant the abdomen from the pelvis. I then removed the trocar ports under direct visualization all port sites appeared hemostatic. I then allowed the abdomen decompress. The epigastric 10mm trocar port fascial defect was then closed utilizing 0 Vicryl suture at the fascial level. The skin edges in all the port sites were then approximated utilizing a running subcuticular 4-0 Monocryl suture. Incisions were then cleaned the skin glue sterile dressings were applied. The patient tolerated the procedure well no complications. All sponges, needles, and instrument counts were correct at the end procedure. EBL was _10_cc. The patient was awakened and taken to recovery in stable and satisfactory condition. Implants None Estimated Blood Loss 10 Drains No Packing No Pathology Yes (Gallbladder and contents sent to pathology) Complications No immediate complications Condition Stable Disposition PACU [facility] Billing Surgery - Charge Forward: Surgery Billing
[2024-02-10] MEDS: fentaNYL CITRATE INJ (*CRX) 100 MCG/2 ML VIAL 25 MCG IV PUSH ×2 (14:52→14:55)
[2024-02-10] MEDS: oxyCODONE HCL (*CRX) 5 MG TAB IR PO (15:59)
== END 2024-02-10 16:25 | disposition home or self-care (01) ==
PROVIDERS: Visit Provider Surgery
PROC: 0FT44ZZ Resection of Gallbladder, Percutaneous Endoscopic Approach (ICD-10-PCS; CPT 47562; principal; 2024-02-10 12:00)
DX: K80.10 Calculus of gallbladder with chronic cholecystitis without obstruction (principal); R93.2 Abnormal findings on diagnostic imaging of liver and biliary tract
CPT/HCPCS: 47563; 74300; 88304; A9270; J0690; J1885; J2004; J2250; J2405; J3010; J7120; Q9966